=== PATIENT | female | born 1950 | race Caucasian/White ===

== ENCOUNTER 2023-05-04 11:56 | Outpatient (REF) | payer MEDICARE, OTHER, SELFPAY ==
[2023-05-04 14:22] LABS: Blood Urea Nitrogen 10 mg/dL (9-16); Estimated Glomerular Filt Rate > 60
== END 2023-05-04 11:57 | disposition home or self-care (01) ==
LOC: HO.LAB 11:56
PROVIDERS: Visit Provider Psychiatry & Neurology Neurology
DX: I10 Essential (primary) hypertension (principal); I63.40 Cerebral infarction due to embolism of unspecified cerebral artery
CPT/HCPCS: 36415; 82565; 84520

== ENCOUNTER 2023-05-15 09:13 | Outpatient (REF) | payer MEDICARE, OTHER, SELFPAY ==
[2023-05-15] MEDS: iohexoL 350 MG/ML 100 ML INFUS..BTL 70 ML IV (09:58)
== END 2023-05-15 09:14 | disposition home or self-care (01) ==
LOC: HO.CT 09:13
PROVIDERS: Visit Provider Psychiatry & Neurology Neurology
DX: I63.9 Cerebral infarction, unspecified (principal)
CPT/HCPCS: 70496; Q9967